=== PATIENT | female | born 1955 | race Caucasian/White ===

== ENCOUNTER 2017-10-08 17:28 | Emergency (ER) | payer BC ==
--- NOTE | 2017-10-08 18:11 | ER Document Report ---
ED Medical Screen (RME) - General Chief Complaint: Dizziness Stated Complaint: DIZZY Time Seen by Provider: 10/08/17 18:09 Mode of Arrival: Ambulatory Information source: Patient TRAVEL OUTSIDE OF THE [place] IN LAST 30 DAYS: No - HPI Patient complains to provider of: dizziness; R arm paresthesias; cat bite Onset: This morning - pt with c/o dizziness, tachycardia, R arm paresthesias since earlier today. Also, c/o cat bit L ear this afternoon. Tet- UTD - Related Data Allergies/Adverse Reactions: codeine Allergy (Verified 10/08/17 17:29) Physical Exam - Vital signs Vitals: Temp Pulse Resp BP Pulse Ox 98.7 F 116 H 18 112/81 95 10/08/17 17:37 10/08/17 17:37 10/08/17 17:37 10/08/17 17:37 10/08/17 17:37 Course - Vital Signs Vital signs: Temp Pulse Resp BP Pulse Ox 98.7 F 116 H 18 112/81 95 10/08/17 17:37 10/08/17 17:37 10/08/17 17:37 10/08/17 17:37 10/08/17 17:37
--- NOTE | 2017-10-08 19:25 | RADIOLOGY REPORT (SQ) ---
EXAM DESCRIPTION: CT HEAD WITHOUT COMPLETED DATE/TIME: 10/08/2017 7:17 pm REASON FOR STUDY: R arm numbness COMPARISON: None. TECHNIQUE: Axial images acquired through the brain without intravenous contrast. Images reviewed wi th bone, brain and subdural windows. Images stored on PACS. All CT scanners at this facility use dose modulation, iterative reconstruction, and/or weight based d osing when appropriate to reduce radiation dose to as low as reasonably achievable (ALARA). [facility]: Dose Right [facility]: CareDose [facility]: Dose Right [facility]: Teradose 4D [facility]: Smart PhotoMania RADIATION DOSE: mGy. LIMITATIONS: None. FINDINGS: VENTRICLES: Normal size and contour. CEREBRUM: No masses. No hemorrhage. No midline shift. No evidence for acute infarction. Normal gra y/white matter differentiation. No areas of low density in the white matter. CEREBELLUM: No masses. No hemorrhage. No alteration of density. No evidence for acute infarction. EXTRAAXIAL SPACES: No fluid collections. No masses. ORBITS AND GLOBE: No intra- or extraconal masses. Normal contour of globe without masses. CALVARIUM: No fracture. PARANASAL SINUSES: No fluid or mucosal thickening. SOFT TISSUES: No mass or hematoma. OTHER: No other significant finding. IMPRESSION: NORMAL BRAIN CT WITHOUT CONTRAST. EVIDENCE OF ACUTE STROKE: NO. COMMENT: Quality ID # [id number]: Final reports with documentation of one or more dose reduction techniques (e.g., Automated exposure control, adjustment of the mA and/or kV according to patient size, use of iterative reconstruction technique) TECHNICAL DOCUMENTATION: JOB ID: [id number] [employer]- All Rights Reserved
[2017-10-08 19:54] LABS: ABSOLUTE BASOPHILS # (AUTO) 0.1 10^3/uL (0.0-0.2); ABSOLUTE EOSINOPHILS # (AUTO) 0.3 10^3/uL (0.0-0.6); ABSOLUTE LYMPHOCYTES (AUTO) 3.8 10^3/uL (0.5-4.7); ABSOLUTE MONOCYTES (AUTO) 0.7 10^3/uL (0.1-1.4); BASOPHILS % (AUTO) 0.6 % (0-2); EOSINOPHILS % (AUTO) 2.7 % (0-6); HEMOGLOBIN 13.9 g/dL (12.0-15.5); LYMPHOCYTES % (AUTO) 38.7 % (13-45); MEAN CORPUSCULAR VOLUME 88 fl (80-97); MONOCYTES % (AUTO) 7.1 % (3-13); PLATELET COUNT 377 10^3/uL (150-450); RED BLOOD COUNT 4.64 10^6/uL (3.72-5.28); RED CELL DISTRIBUTION WIDTH 14.1 % (11.5-14.0); SEGMENTED NEUTROPHILS % (AUTO) 50.9 % (42-78); TOTAL CELLS COUNTED % (AUTO) 100 %; WHITE BLOOD COUNT 9.8 10^3/uL (4.0-10.5)
[2017-10-08 20:07] LABS: ALANINE AMINOTRANSFERASE 23 U/L (9-52); ALBUMIN 4.5 g/dL (3.5-5.0); ALKALINE PHOSPHATASE 77 U/L (38-126); ANION GAP 9 (5-19); ASPARTATE AMINO TRANSFERASE 27 U/L (14-36); BILIRUBIN,DIRECT 0.1 mg/dL (0.0-0.4); BILIRUBIN,TOTAL 0.2 mg/dL (0.2-1.3); BLOOD UREA NITROGEN 17 mg/dL (7-20); CALCIUM 9.8 mg/dL (8.4-10.2); CARBON DIOXIDE 30 mmol/L (22-30); CHLORIDE 104 mmol/L (98-107); CREATINE KINASE 105 U/L (30-135); GLUCOSE 92 mg/dL (75-110); SODIUM 143.4 mmol/L (137-145); TOTAL PROTEIN 6.9 g/dL (6.3-8.2)
[2017-10-08 20:21] LABS: TROPONIN I < 0.012 ng/mL
--- NOTE | 2017-10-08 20:53 | EKG REPORT ---
SEVERITY:- NORMAL ECG - SINUS RHYTHM : Confirmed by: Jocelyne Capone 08-Oct-2017 20:52:21
[2017-10-08] MEDS ORDERED: PROMETHAZINE HCL 25 MG TABLET PO ONE (21:46)
[2017-10-08] MEDS ORDERED: HYDROCODONE/ACETAMINOPHEN 5-325 MG TABLET PO ONE (21:47)
[2017-10-08] MEDS ORDERED: CALCIUM CARBONATE 500 MG TAB.CHEW PO ONE (21:47)
[2017-10-08] MEDS ORDERED: RINGERS SOLUTION,LACTATED 1,000 ML IV ONE (21:47)
[2017-10-08] MEDS ORDERED: AMOXICILLIN TR/POT CLAVULANATE 500-125 MG TAB PO ONE (21:47)
--- NOTE | 2017-10-08 21:51 | ER Document Report ---
ED General - General Mode of Arrival: Ambulatory Information source: Patient TRAVEL OUTSIDE OF THE [place] IN LAST 30 DAYS: No <EILEEN BELTRAN - Last Filed: 10/09/17 00:27> <ZEN MACIAS - Last Filed: 10/09/17 00:36> - General Chief Complaint: Dizziness Stated Complaint: DIZZY Time Seen by Provider: 10/08/17 18:09 Notes: Patient is a 61 year old female that presents to the emergency department today with complaints of being scratched by her daughter's blind kitten this morning. Patient states after being scratched she developed a headache, dizziness further describes as feeling lightheaded and near-syncope, and right arm tingling which has been baseline for the patient over the last 6 weeks. Patient states she does not know about the vaccine status on the blind kitten but the cat is an indoor cat only and they have had the kitten for over 3 months. Patient's tetanus status is up to date. Patient also mentions having "very bad acid reflux" and requests tums stating this is what she would normally take for her baseline pain at home. Patient denies chest pain. (EILEEN BELTRAN) - Related Data Allergies/Adverse Reactions: codeine Allergy (Verified 10/08/17 17:29) Past Medical History - General Information source: Patient - Social History Smoking Status: Current Every Day Smoker Cigarette use (# per day): Yes Chew tobacco use (# tins/day): No Frequency of alcohol use: None Drug Abuse: None Lives with: Family Family History: Reviewed & Not Pertinent Patient has suicidal ideation: No Patient has homicidal ideation: No - Medical History Medical History: Negative Past Surgical History: Reports: Other - spinal surgery, skin cancer removal of right shoulder <EILEEN BELTRAN - Last Filed: 10/09/17 00:27> - Past Medical History Cardiac Medical History: Reports: Hx Hypertension <ZEN MACIAS - Last Filed: 10/09/17 00:36> Review of Systems - Review of Systems Constitutional: No symptoms reported EENT: See HPI, Ear pain - lacerations Cardiovascular: See HPI, Dizziness, Lightheaded Respiratory: No symptoms reported Gastrointestinal: No symptoms reported Genitourinary: No symptoms reported Female Genitourinary: No symptoms reported Musculoskeletal: No symptoms reported Skin: No symptoms reported Hematologic/Lymphatic: No symptoms reported Neurological/Psychological: See HPI, Tingling - right arm tingling -: Yes All other systems reviewed and negative <EILEEN BELTRAN - Last Filed: 10/09/17 00:27> Physical Exam <EILEEN BELTRAN - Last Filed: 10/09/17 00:27> <ZEN MACIAS - Last Filed: 10/09/17 00:36> - Vital signs Vitals: Temp Pulse Resp BP Pulse Ox 98.7 F 116 H 18 112/81 95 10/08/17 17:37 10/08/17 17:37 10/08/17 17:37 10/08/17 17:37 10/08/17 17:37 - Notes Notes: PHYSICAL EXAM GENERAL: Alert, interacts well. No acute distress. HEAD: Normocephalic. EYES: Pupils equal, round, and reactive to light. Extraocular movements intact. ENT: Oral mucosa moist, tongue midline. See skin exam. NECK: Full range of motion. Supple. Trachea midline. LUNGS: Clear to auscultation bilaterally, no wheezes, rales, or rhonchi. No respiratory distress. HEART: Regular rate and rhythm. No murmurs, gallops, or rubs. ABDOMEN: Soft, non-tender. Non-distended. Bowel sounds present in all 4 quadrants. EXTREMITIES: Moves all 4 extremities spontaneously. No edema, radial and dorsalis pedis pulses 2/4 bilaterally. No cyanosis. NEUROLOGICAL: Alert and oriented x3. Normal speech. Cranial nerves II through XII intact bilaterally. Finger to nose test intact. PSYCH: Normal affect, normal mood. SKIN: Warm, dry, normal turgor. 3 non-gaping lacerations to left ear, 4mm laceration into cartilage over inferior portion of antitragus, 2mm laceration over superior portion of antitragus, 5mm laceration just superior to the lobule but not into the antihelix. (EILEEN BELTRAN) Course - Laboratory Result Diagrams: 10/08/17 19:30 10/08/17 19:30 <EILEEN BELTRAN - Last Filed: 10/09/17 00:27> - Laboratory Result Diagrams: 10/08/17 19:30 10/08/17 19:30 <ZEN MACIAS - Last Filed: 10/09/17 00:36> - Re-evaluation Re-evalutation: 10/08/17 22:55 CBC unremarkable, CMP unremarkable, cardiac enzymes negative 2, CT scan of the head is negative for any acute process. EKG is nonischemic. Patient is neurologically intact. No facial droop, no evidence of stroke. For the scratches to the patient's left ear her left ear was cleaned, she was started on antibiotics in the form of Augmentin. The wounds are not gaping and be approximated due to the increased risk of infection. I do not know exactly why the patient is having dizziness at this time. She is not hypertensive, she is not tachycardic on my examination, she has no neurologic deficits, cardiac cause is not suspect at this time. No hypoxia, no longer taking any hormones and has not been for several months, almost a year. Patient's only risk factor for pulmonary embolism is a recent trip and it was not a long trip it was 1-2 hours within the same state. Patient was hydrated, she was medicated for the pain on her left ear and her headache. I suspect the tingling in her arm that radiates to her right neck is related to either the surgery where they excised a large amount of skin cancer or it is more likely related to cervical radiculopathy. No sign of acute impingement requiring emergent MRI and neurosurgery tonight. Patient is encouraged to drink plenty of fluids, follow-up with her primary care physician as an outpatient, encouraged not to abruptly stop the Seroquel that she is taking. Patient will be discharged to home. (ZEN MACIAS) - Vital Signs Vital signs: Temp Pulse Resp BP Pulse Ox 98.7 F 99 18 145/93 H 100 10/08/17 17:37 10/08/17 23:55 10/08/17 23:55 10/08/17 23:55 10/08/17 23:55 - Laboratory Laboratory results interpreted by me: 10/08/17 19:30 RDW 14.1 H - EKG Interpretation by Me Additional EKG results interpreted by me: 10/08/17 23:01 EKG shows sinus rhythm rate 95, normal axis, normal intervals, no ST segment elevations or depressions, no T-wave inversions per my interpretation. (ZEN MACIAS) Discharge <EILEEN BELTRAN - Last Filed: 10/09/17 00:27> <ZEN MACIAS - Last Filed: 10/09/17 00:36> - Discharge Clinical Impression: Arm paresthesia, right, Dizziness Cat scratch of face Qualifiers: Encounter type: initial encounter Qualified Code(s): S00.81XA - Abrasion of other part of head, initial encounter Condition: Stable Disposition: HOME, SELF-CARE Additional Instructions: The cat scratched your left ear has a high risk of becoming infected if we suture it or glue it shot. This should heal well on its own. Please wash it with soap and water twice a day and apply [id number]-[id number] antibiotic ointment. Please return for redness, swelling or discharge. Please take the Augmentin as directed until it is gone. I am not sure what is causing your dizziness. Please drink plenty of fluids. When you go from a sitting to a standing position please move very slowly. If you develop chest pain that is not like her usual heartburn and is not relieved by Tums please return to the emergency department. I suspect the tingling in your right arm is coming from a pinched nerve in your neck. If you develop weakness please return to the emergency department otherwise please follow-up with your primary care physician as an outpatient. You may benefit from physical therapy or you may end up needing an MRI. Your primary care physician will decide this. Today your blood work was normal. There is no sign of heart attack. Prescriptions: Amox Tr/Potassium Clavulanate [Augmentin 875-125 Tablet] 1 tab PO BID 7 Days tablet Promethazine HCl [Phenergan 25 mg Tablet] 1 - 2 tab PO Q6H PRN #15 tablet PRN Reason: Referrals: NATASHA LORD MD [ACTIVE STAFF] - Follow up in 1 week Scribe Attestation: 10/09/17 00:36 I personally performed the services described in the documentation, reviewed and edited the documentation which was dictated to the scribe in my presence, and it accurately records my words and actions. (ZEN MACIAS) Scribe Documentation - Scribe Written by Scribe:: Ernie Nobles, [id number] 10/08/2017 acting as scribe for :: Hayley <EILEEN BELTRAN - Last Filed: 10/09/17 00:27>
[2017-10-08] MEDS ORDERED: KETOROLAC TROMETHAMINE 60 MG/2 ML SDV IV ONE (22:53)
[2017-10-08 23:55] VITALS: BP 145/93
== END 2017-10-08 23:55 | disposition home or self-care (01) ==
LOC: ER 17:28
DX: R20.2 Paresthesia of skin (principal); R55 Syncope and collapse; S01.312A Laceration without foreign body of left ear, initial encounter; W55.03XA Scratched by cat, initial encounter; K21.9 Gastro-esophageal reflux disease without esophagitis; R51 Headache; F17.210 Nicotine dependence, cigarettes, uncomplicated; I10 Essential (primary) hypertension; Z85.828 Personal history of other malignant neoplasm of skin; Z98.890 Other specified postprocedural states; Z88.5 Allergy status to narcotic agent; Z79.899 Other long term (current) drug therapy
CPT/HCPCS: 93005; 99284; 96361; 96374; 36415; 82553; 82550; 85025; 80053; 84484; 70450; 93010; J1885; J7120